=== PATIENT | male | born 1980 | race Caucasian/White ===

== ENCOUNTER 2020-10-01 07:35 | Day surgery (SDC) | payer BC ==
[~2020-10-01 07:35] MED LIST: Midazolam 1 MG/ML 2 ML SDV ONE; fentaNYL 100 MCG/2 ML SDV ONE
[2020-10-01] MEDS ORDERED: Midazolam 1 MG/ML 2 ML SDV IV ONE (07:36)
[2020-10-01] MEDS ORDERED: fentaNYL 100 MCG/2 ML SDV IV ONE (07:36)
[2020-10-01] MEDS: Dextrose 5%-0.45% NaCl 1,000 ML IV SCH (07:50)
[2020-10-01] MEDS: fentaNYL 100 MCG/2 ML SDV IV ONE ×2 (08:11→08:12)
[2020-10-01] MEDS: Midazolam 1 MG/ML 2 ML SDV IV ONE ×2 (08:12→08:13)
--- NOTE | 2020-10-01 09:49 | OR ---
DATE: 10/01/2020 PROCEDURE: Esophagogastroduodenoscopy and multiple pinch biopsies. INSTRUMENT USED: [id number] Olympus video panendoscope. PREMEDICATIONS: No oral or topical anesthesia used. Fentanyl 100 mcg intravenous, Versed 2 mg intravenous. The procedure was done under pulse oximetry, BP recording, and cardiac monitoring. INDICATION: The patient with persistent heartburn, upper abdominal pain, associated chest discomfort as well as bloating, unexplained and not responsive to medical measures, on PPI. Esophagogastroduodenoscopy is performed for detection of any active erosive lesions, [place] esophagus and/or malignancy also under consideration, H. pylori status to be determined, small bowel biopsies to be taken for celiac disease if indicated, endoscopic hemostasis therapy if needed. DESCRIPTION OF PROCEDURE: The scope was passed with ease. Adequate visualization of the esophagus was made from proximal to distal areas. No upper esophageal lesions identified. No distal esophageal stricture. No uphill or downhill esophageal varices. No Diann-Collazo tear. No evidence of erosive esophagitis by Sumner criteria. No esophageal polyp or tumor mass identified. Z-line was seen at around 40 cm distal to the oral verge, configuration consistent with grade 1 by ZAP classification. No proximal gastric varices noted. Gastric fundus examination by retroflexion showed no polypoid lesions. No gastric ulcer, malignant mass, or vascular ectasia identified. Duodenal bulb showed no ulcer. Visualized second part of the duodenum was unremarkable. Multiple pinch biopsies, 4 in number were taken from different areas of the 2nd part of the duodenum, and tissues were also obtained from the duodenal polyp at 9 and 12 o'clock positions and sent for any histopathologic evidence of celiac disease. Multiple pinch biopsies also were taken from the gastric antrum and proximal body and sent for PyloriTek test for H. pylori and histopathology. No bleeding was noted from any of the visualized areas at the completion of the examination. Photographs were taken of duodenal bulb, gastric antrum, fundus, and distal esophagus. IMPRESSION: Normal study. The patient tolerated the procedure well. [facility] /[id number]
== END 2020-10-01 10:25 | disposition home or self-care (01) ==
LOC: DL.ENDO 07:35
PROVIDERS: ATTEND Internal Medicine Gastroenterology
DX: R12 Heartburn (principal); E66.09 Other obesity due to excess calories; I10 Essential (primary) hypertension; E78.1 Pure hyperglyceridemia; R73.9 Hyperglycemia, unspecified; Z88.0 Allergy status to penicillin; Z90.49 Acquired absence of other specified parts of digestive tract; Z68.26 Body mass index [BMI] 26.0-26.9, adult
CPT/HCPCS: 43239; J2250; J3010; J7042

== ENCOUNTER 2020-10-04 05:52 | Day surgery (SDC) | payer BC, OTHER ==
[2020-10-04] MEDS ORDERED: Midazolam 1 MG/ML 2 ML SDV IV ONE ×8 (05:53→07:24)
[2020-10-04] MEDS ORDERED: fentaNYL 100 MCG/2 ML SDV IV ONE ×7 (05:53→07:21)
[2020-10-04] MEDS ORDERED: Dextrose 5%-0.45% NaCl 1,000 ML IV SCH (06:15)
[2020-10-04] MEDS ORDERED: Midazolam 1 MG/ML 2 ML SDV ONE (06:17)
[2020-10-04] MEDS ORDERED: fentaNYL 100 MCG/2 ML SDV ONE (06:17)
--- NOTE | 2020-10-04 08:00 | OR ---
DATE: 10/04/2020 PROCEDURES: Total colonoscopy and multiple cold snare polypectomies. INSTRUMENT USED: [id number] Olympus video colonoscope. PREMEDICATIONS: Fentanyl 200 mcg intravenous, Versed 5 mg intravenous, nasal O2 cannula. The procedure was done under pulse oximetry, BP recording, and pasteurizer helper. INDICATION: The patient with rectal bleeding. Colonoscopic examination is done for detection of any polypoid lesions and removal, endoscopic hemostasis therapy if needed. DESCRIPTION OF PROCEDURE: Initial rectal exam showed some diffuse tenderness and spasm. Rigid anoscopy was unremarkable. The colonoscope was passed with ease up to the ileocecal area. Photographs were taken of the normal-appearing cecum identified by landmarks of appendiceal orifice and double-bulged ileocecal folds. No bleeding was noted from any of the visualized areas at the commencement of the examination. The bowel preparation was found to be adequate, [place] scale 2 in all the regions, total score 6. In the rectosigmoid area, multiple diminutive polyps were noted, 3 in number. Photograph was taken of the rectal polyp, multiple cold snare polypectomies were done, the tissue was retrieved and sent for histopathology. No stricture. No vascular ectasia. No large isolated ulcerations seen. No evidence of diffuse inflammatory bowel disease in the form of friability, contact bleeding, or ulcerations. Probing the proximal sides of folds and flexures using adequate distention and clearing up the stool material, withdrawal of the scope was made, cecum to rectum time over 6 minutes. No bleeding was noted from any of the visualized areas at the completion of examination. IMPRESSION: Diminutive rectosigmoid polyps. The patient tolerated the procedure well. [facility] /[id number]
== END 2020-10-04 09:28 | disposition home or self-care (01) ==
LOC: DL.ENDO 05:52
PROVIDERS: ATTEND Internal Medicine Gastroenterology
DX: K63.5 Polyp of colon (principal); K62.1 Rectal polyp; E66.09 Other obesity due to excess calories; I10 Essential (primary) hypertension; E78.1 Pure hyperglyceridemia; Z88.0 Allergy status to penicillin; Z90.49 Acquired absence of other specified parts of digestive tract; Z68.26 Body mass index [BMI] 26.0-26.9, adult
CPT/HCPCS: 45385; 87077; J2250; J3010; J7042